=== PATIENT | male | born 2000 | race Caucasian/White ===

== ENCOUNTER 2022-08-01 19:15 | Emergency (ER) | payer OTHER ==
[~2022-08-01] VITALS: Ht 170.2 cm; Wt 82.2 kg
[2022-08-01] MEDS ORDERED: IBUPROFEN 600MG TAB PO ONE (20:30)
[2022-08-01] MEDS ORDERED: IBUP-1022 PO (20:31)
[2022-08-01 21:00] VITALS: BP 125/69
== END 2022-08-01 21:15 | disposition home or self-care (01) ==
LOC: M ED 19:15
DX: S93.412A Sprain of calcaneofibular ligament of left ankle, initial encounter (principal); Y93.01 Activity, walking, marching and hiking; Z91.013 Allergy to seafood; Z79.1 Long term (current) use of non-steroidal anti-inflammatories (NSAID)

== ENCOUNTER 2022-11-13 05:01 | Emergency (ER) | payer OTHER ==
[~2022-11-13] VITALS: Ht 170.2 cm; Wt 79.6 kg
[~2022-11-13 05:01] MED LIST: IBUP-1022 PO
[2022-11-13] MEDS ORDERED: ONDANSETRON 4MG 2ML VIAL IV ONE (07:15)
[2022-11-13] MEDS ORDERED: NS 1,000 ML IV ONE (07:15)
[2022-11-13 08:28] LABS: BASO % 0.6 % (0.0-1.0); EOS # 0.2 10^3/uL (0.0-0.5); EOS % 4.3 % (0.0-3.0); HEMATOCRIT 44.8 % (42.0-52.0); LYMPH # 1.4 10^3/uL (1.5-5.0); LYMPH % 40.3 % (24.0-44.0); MEAN CORPUSCULAR HEMOGLOBIN 29.3 pg (27.0-33.0); MEAN CORPUSCULAR HGB CONC 33.5 g/dl (32.0-36.5); MEAN CORPUSCULAR VOLUME 87.5 fl (80.0-96.0); MONO # 0.4 10^3/uL (0.0-0.8); MONO % 12.4 % (2.0-8.0); NEUTROPHILS # 1.5 10^3/uL (1.5-8.5); NEUTROPHILS % 42.1 % (36.0-66.0); PLATELET COUNT, AUTOMATED 350 10^3/uL (150-450); RED BLOOD COUNT 5.12 10^6/uL (4.30-6.10); WHITE BLOOD COUNT 3.5 10^3/uL (4.0-10.0)
[2022-11-13 08:52] LABS: LIPASE 33 U/L (12-53)
[2022-11-13 08:54] LABS: ALBUMIN 4.7 G/DL (3.2-5.2); ALKALINE PHOSPHATASE 117 U/L (46-116); ALT/SGPT 34 U/L (7.0-40); AST/SGOT 14 U/L (<34); BILIRUBIN,DIRECT 0.4 MG/DL (<0.4); BILIRUBIN,TOTAL 1.3 MG/DL (0.3-1.2); BLOOD UREA NITROGEN 19 MG/DL (9-23); CALCIUM LEVEL 9.3 MG/DL (8.5-10.1); CARBON DIOXIDE LEVEL 28 MMOL/L (20-31); CHLORIDE LEVEL 101 MMOL/L (98-107); CREATININE FOR GFR 1.01 MG/DL (0.70-1.30); GLUCOSE, FASTING 84 MG/DL (60-100); POTASSIUM SERUM 4.2 MMOL/L (3.5-5.1); SODIUM LEVEL 136 MMOL/L (136-145); TOTAL PROTEIN 7.5 G/DL (5.7-8.2)
[2022-11-13] MEDS ORDERED: ONDA4TAB6 PO (09:33)
[2022-11-13 09:55] VITALS: BP 127/58; TEMP 97.2; O2SAT 100
== END 2022-11-13 09:57 | disposition home or self-care (01) ==
LOC: M ED 05:01
DX: R11.2 Nausea with vomiting, unspecified (principal); Z91.013 Allergy to seafood; Z79.83 Long term (current) use of bisphosphonates
CPT/HCPCS: 76705; 80048; 80076; 83690; 85025; 96361; 96374; 99284; J2405

== ENCOUNTER 2023-04-29 17:18 | Emergency (ER) | payer OTHER ==
[~2023-04-29] VITALS: Ht 170.2 cm; Wt 81.6 kg
[~2023-04-29 17:18] MED LIST changes: +ONDA4TAB6 PO
[2023-04-29 21:37] VITALS: BP 125/57; TEMP 98; O2SAT 98
== END 2023-04-29 21:26 | disposition home or self-care (01) ==
LOC: M ED 17:18
DX: S63.601A Unspecified sprain of right thumb, initial encounter (principal); W19.XXXA Unspecified fall, initial encounter; Y92.84 Military training ground as the place of occurrence of the external cause; Y93.89 Activity, other specified; Y99.1 Military activity

== ENCOUNTER → 2023-07-19 | Outpatient (CLI) | payer OTHER | LOC: M PLAIMG 07-18 06:39 → M PLARAD 07:47 | PROVIDERS: ATTEND Physician Assistant Surgical | DX: S63.641A Sprain of metacarpophalangeal joint of right thumb, initial encounter (principal); Y93.9 Activity, unspecified; Y92.9 Unspecified place or not applicable ==

== ENCOUNTER 2023-07-28 09:20 | Emergency (ER) | payer OTHER ==
[~2023-07-28] VITALS: Ht 170.2 cm; Wt 80.5 kg
[2023-07-28] MEDS ORDERED: CYCL-707 PO (09:29)
[2023-07-28] MEDS: KETOROLAC 30 MG/ML 1ML VIAL IV ONE (11:08)
[2023-07-28] MEDS: NS 1,000 ML IV ONE (12:10)
[2023-07-28] MEDS: ONDANSETRON 4MG 2ML VIAL IV ONE (12:10)
[2023-07-28] MEDS: PERCOCET 5MG/325MG TAB PO ONE (12:11)
[2023-07-28] MEDS ORDERED: KETO10TAB PO (13:37)
[2023-07-28] MEDS ORDERED: ONDA4TAB6 PO (13:37)
[2023-07-28] MEDS ORDERED: PERC5TAB12 PO (13:37)
[2023-07-28 14:00] VITALS: BP 103/59; TEMP 97.4; O2SAT 99
== END 2023-07-28 14:07 | disposition home or self-care (01) ==
LOC: M ED 09:20
DX: S06.0X0A Concussion without loss of consciousness, initial encounter (principal); W22.09XA Striking against other stationary object, initial encounter; Z91.013 Allergy to seafood; Y92.9 Unspecified place or not applicable; Y93.89 Activity, other specified; Y99.0 Civilian activity done for income or pay; Z79.83 Long term (current) use of bisphosphonates; Z79.899 Other long term (current) drug therapy
CPT/HCPCS: 70450; 72125; 80047; 96361; 96374; 96375; 99283; J1885; J2405